=== PATIENT | male | born 1980 | race Two or more races ===

== ENCOUNTER 2018-08-14 10:30 | Inpatient (IN) | payer SELFPAY ==
[2018-08-14] MEDS ORDERED: NORMAL SALINE 1000 ML 1,000 ML IV ONE (10:42)
--- NOTE | 2018-08-14 10:43 | ER Document Report ---
ED Medical Screen (RME) - General Chief Complaint: Abdominal Pain Stated Complaint: ABNORMAL LABS Time Seen by Provider: 08/14/18 10:40 Mode of Arrival: Ambulatory Information source: Patient Notes: 38-year-old male presents to ED for complaint of abdominal pain and a white count over 40,000. Pain started on Thursday got worse on Thursday it was terrible and he was sweating every time the pain got bad states she has not had any fever throughout this episode. He does smoke 1/2 pack a day drinks weekly and does not do any drugs. He was sent by his primary care doctor to be evaluated and treated. I have greeted and performed a rapid initial assessment of this patient. A comprehensive ED assessment and evaluation of the patient, analysis of test results and completion of medical decision making process will be conducted by an additional ED providers. Dictation of this chart was performed using voice recognition software; therefore, there may be some unintended grammatical errors. TRAVEL OUTSIDE OF THE [place] IN LAST 30 DAYS: No - Related Data Allergies/Adverse Reactions: No Known Allergies Allergy (Verified 08/14/18 10:30) Physical Exam - Vital signs Vitals: Temp Pulse Resp BP Pulse Ox 98.6 F 110 H 16 116/97 H 98 08/14/18 10:33 08/14/18 10:33 08/14/18 10:33 08/14/18 10:33 08/14/18 10:33 Course - Vital Signs Vital signs: Temp Pulse Resp BP Pulse Ox 98.6 F 110 H 16 116/97 H 98 08/14/18 10:33 08/14/18 10:33 08/14/18 10:33 08/14/18 10:33 08/14/18 10:33
[2018-08-14] MEDS ORDERED: RINGERS SOLUTION,LACTATED 1,000 ML IV ONE (10:51)
[2018-08-14] MEDS ORDERED: FENTANYL CITRATE INJ/PF 100 MCG/2 ML AMPUL IV ONE ×2 (11:00→15:20)
[2018-08-14] MEDS ORDERED: ONDANSETRON HCL INJ/PF 4 MG/2 ML SDV IV ONE (11:00)
[2018-08-14 11:23] LABS: HEMOGLOBIN 14.7 g/dL (13.5-17.0); MEAN CORPUSCULAR HGB CONC 33.3 g/dL (32.0-36.0); MEAN CORPUSCULAR VOLUME 96 fl (80-97); PLATELET COUNT 177 10^3/uL (150-450); RED BLOOD COUNT 4.58 10^6/uL (4.35-5.55); RED CELL DISTRIBUTION WIDTH 13.9 % (11.5-14.0); WHITE BLOOD COUNT 26.6 10^3/uL (4.0-10.5)
[2018-08-14 11:33] LABS: ALANINE AMINOTRANSFERASE 28 U/L (21-72); ALBUMIN 3.7 g/dL (3.5-5.0); ALKALINE PHOSPHATASE 83 U/L (38-126); ANION GAP 11 (5-19); ASPARTATE AMINO TRANSFERASE 16 U/L (17-59); BILIRUBIN,DIRECT 0.6 mg/dL (0.0-0.4); BILIRUBIN,TOTAL 1.2 mg/dL (0.2-1.3); BLOOD UREA NITROGEN 12 mg/dL (7-20); CALCIUM 9.2 mg/dL (8.4-10.2); CARBON DIOXIDE 26 mmol/L (22-30); CHLORIDE 103 mmol/L (98-107); GLUCOSE 107 mg/dL (75-110); POTASSIUM 3.7 mmol/L (3.6-5.0); TOTAL PROTEIN 6.4 g/dL (6.3-8.2)
[2018-08-14 11:55] LABS: ABSOLUTE LYMPHOCYTES# (MANUAL) 2.1 10^3/uL (0.5-4.7); ABSOLUTE MONOCYTES # (MANUAL) 2.1 10^3/uL (0.1-1.4); ABSOLUTE NEUTROPHILS# (MANUAL) 22.3 10^3/uL (1.7-8.2); BASOPHILS % (MANUAL) 0 % (0-2); EOSINOPHILS % (MANUAL) 0 % (0-6); LYMPHOCYTES % (MANUAL) 8 % (13-45); MONOCYTES % (MANUAL) 8 % (3-13); SEGMENTED NEUTROPHILS % (MAN) 84 % (42-78); TOTAL CELLS COUNTED 100
[2018-08-14 11:56] LABS: PLATELET COMMENT ADEQUATE; RBC MORPHOLOGY COMMENT NORMO-CYTIC/CHROMIC
[2018-08-14] MEDS ORDERED: PIPERACILLIN/TAZOBACTAM 4.5 GM VIAL IV ONE (12:16)
--- NOTE | 2018-08-14 12:43 | RADIOLOGY REPORT (SQ) ---
EXAM DESCRIPTION: CT ABD/PELVIS WITH IV ONLY COMPLETED DATE/TIME: 08/14/2018 11:32 am REASON FOR STUDY: RLQ pain NOW DIFFUSE ABDOMINAL PAIN. WBC COUNT GREATER THAN 40,000. COMPARISON: None. TECHNIQUE: CT scan of the abdomen and pelvis performed using helical scanning technique with dynamic intravenous contrast injection. No oral contrast. Images reviewed with lung, soft tissue, and bone windows. Reconstructed coronal and sagittal MPR images reviewed. Delayed images for evaluation of the urinary system also acquired. All images stored on PACS. All CT scanners at this facility use dose modulation, iterative reconstruction, and/or weight based d osing when appropriate to reduce radiation dose to as low as reasonably achievable (ALARA). [facility]: Dose Right [facility]: CareDose [facility]: Dose Right [facility]: Teradose 4D [facility]: Open Source Food CONTRAST TYPE AND DOSE: contrast/concentration: Isovue mg/ml; Total Contrast Delivered: 100.0 ml; T otal Saline Delivered: 72.0 ml Omnipaque 300. 100 mL. RENAL FUNCTION: NA. RADIATION DOSE: CT Rad equipment meets quality standard of care and radiation dose reduction techniq ues were employed. CTDIvol: 19.4 - 21.0 mGy. DLP: 2308 mGy-cm.. LIMITATIONS: None. FINDINGS: LOWER CHEST: Atelectasis in lung bases. LIVER: No abnormality seen. SPLEEN: Status post splenectomy with changes of splenosis. PANCREAS: No abnormality seen. GALLBLADDER: No abnormality seen. ADRENAL GLANDS: No significant masses or asymmetry. RIGHT KIDNEY AND URETER: No abnormality seen. LEFT KIDNEY AND URETER: No abnormality seen. AORTA AND VESSELS: Normal PE No dissection. Renal arteries, SMA, celiac without stenosis. RETROPERITONEUM: Inflammatory change noted in the retroperitoneal region. BOWEL AND PERITONEAL CAVITY: There is prominent mucosal thickening and inflammatory change of the rec tosigmoid colon consistent with acute diverticulitis with evidence of a small pelvic abscess with flu id collection/ air extending to the left hemipelvis and fluid collection right hemipelvis. The centr al portion of the abscess is noted measuring 2 cm in height x 2.8 cm in transverse diameterx1 cm in A P diameter.(image number 48/91 series 601 coronal scans and image 77/102 series 3 ). There is signif icant inflammatory change of the mesentery noted prominent loop of small bowel and anterior pelvis co uld represent changes related to ileus. APPENDIX: Normal(image number [id number] coronal images series 601). PELVIS: Urinary bladder: No abnormality. Prostate and seminal vesicles: No abnormality. ABDOMINAL WALL: No masses. No hernias. BONES: Dorsal spondylosis. IMPRESSION: Findings consistent with acute diverticulitis of the rectosigmoid colon with small pelvi c abscess. Follow-up recommended. Normal appendix. Follow-up at later interval recommended. COMMENT: The report was called to ROBB Nascimento taking care of the patient in the emergency room at 1218 hours TECHNICAL DOCUMENTATION: JOB ID: [id number] Quality ID # [id number]: Final reports with documentation of one or more dose reduction techniques (e.g., Au tomated exposure control, adjustment of the mA and/or kV according to patient size, use of iterative reconstruction technique) 2010 [employer]- All Rights Reserved Reading location - IP/workstation name: [email or web address]
[2018-08-14 13:01] LABS: APPEARANCE,URINE CLEAR; BILIRUBIN,URINE NEGATIVE (NEGATIVE); COLOR,URINE YELLOW; GLUCOSE, URINE NEGATIVE (NEGATIVE); KETONES,URINE 20 mg/dL (NEGATIVE); LEUKOCYTE ESTERASE,URINE NEGATIVE (NEGATIVE); NITRITE,URINE NEGATIVE (NEGATIVE); PROTEIN,URINE NEGATIVE (NEGATIVE); URINE SPECIFIC GRAVITY 1.041
[2018-08-14] MEDS ORDERED: HYDROMORPHONE HCL INJ/PF 2 MG/ML AMPULE IV ONE (13:40)
--- NOTE | 2018-08-14 14:15 | ER Document Report ---
ED General - General Chief Complaint: Abdominal Pain Stated Complaint: ABNORMAL LABS Time Seen by Provider: 08/14/18 10:40 Mode of Arrival: Ambulatory Notes: Patient is an 38-year-old male presents to the emergency department for generalized lower abdominal pain since Thursday. Patient's denying any nausea, vomiting, diarrhea. States he has not had a fever. States he went to a walk-in urgent care yesterday and had routine blood drawn. States this morning they called him and told him his white blood cell count was greater than 40,000 and he should present to the emergency room. Patient states he continues with generalized abdominal pain which is why he presents to the emergency room. 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 Past medical history: None medications: None Allergies: None TRAVEL OUTSIDE OF THE [place] IN LAST 30 DAYS: No - Related Data Allergies/Adverse Reactions: No Known Allergies Allergy (Verified 08/14/18 10:30) Past Medical History - General Information source: Patient - Social History Smoking Status: Current Every Day Smoker Frequency of alcohol use: Social Drug Abuse: Marijuana Family History: Reviewed & Not Pertinent Patient has suicidal ideation: No Patient has homicidal ideation: No Renal/ Medical History: Denies: Hx Peritoneal Dialysis Past Surgical History: Reports: Hx Abdominal Surgery - splenectomy Review of Systems - Review of Systems Constitutional: No symptoms reported EENT: No symptoms reported Cardiovascular: No symptoms reported Respiratory: No symptoms reported Gastrointestinal: See HPI Genitourinary: denies: Burning, Dysuria Male Genitourinary: No symptoms reported Musculoskeletal: No symptoms reported Skin: No symptoms reported Hematologic/Lymphatic: No symptoms reported Neurological/Psychological: No symptoms reported Physical Exam - Vital signs Vitals: Temp Pulse Resp BP Pulse Ox 98.6 F 110 H 16 116/97 H 98 08/14/18 10:33 08/14/18 10:33 08/14/18 10:33 08/14/18 10:33 08/14/18 10:33 - Notes Notes: GENERAL: Alert, interacts well. No acute distress. HEAD: Normocephalic, atraumatic. EYES: Pupils equal, round, and reactive to light. Extraocular movements intact. ENT: Oral mucosa moist, tongue midline. NECK: Full range of motion. Supple. Trachea midline. LUNGS: Clear to auscultation bilaterally, no wheezes, rales, or rhonchi. No respiratory distress. HEART: Regular rate and rhythm. No murmur ABDOMEN: Soft, Non-distended. Bowel sounds present in all 4 quadrants. Generalized tenderness bilateral lower quadrants, no right upper quadrant abdominal pain no left upper abdominal pain EXTREMITIES: Moves all 4 extremities spontaneously. No edema, normal radial and dorsalis pedis pulses bilaterally. No cyanosis. BACK: no cervical, thoracic, lumbar midline tenderness. No saddle anesthesia, normal distal neurovascular exam. NEUROLOGICAL: Alert and oriented x3. Normal speech. cranial nerves II through XII grossly intact PSYCH: Normal affect, normal mood. SKIN: Warm, dry, normal turgor. No rashes or lesions noted. Genitalia: Harrison Ames RN, circumcised penis no active discharge at the meatus, bilateral testicles nonerythematous, non-tender, nonswollen. Course - Re-evaluation Re-evalutation: Laboratory 08/14/18 08/14/18 08/14/18 10:55 10:55 12:00 WBC 26.6 H RBC 4.58 Hgb 14.7 Hct 44.0 MCV 96 MCH 32.0 MCHC 33.3 RDW 13.9 Plt Count 177 Total Counted 100 Seg Neutrophils % Not Reportable Seg Neuts % (Manual) 84 H Lymphocytes % Not Reportable Lymphocytes % (Manual) 8 L Monocytes % Not Reportable Monocytes % (Manual) 8 Eosinophils % Not Reportable Eosinophils % (Manual) 0 Basophils % Not Reportable Basophils % (Manual) 0 Absolute Neutrophils Not Reportable Abs Neuts (Manual) 22.3 H Absolute Lymphocytes Not Reportable Abs Lymphs (Manual) 2.1 Absolute Monocytes Not Reportable Abs Monocytes (Manual) 2.1 H Absolute Eosinophils Not Reportable Absolute Eos (Manual) 0.0 Absolute Basophils Not Reportable Abs Basophils (Manual) 0.0 Platelet Comment ADEQUATE RBC Morph Comment NORMO-CYTIC/CHROMIC Sodium 140.0 Potassium 3.7 Chloride 103 Carbon Dioxide 26 Anion Gap 11 BUN 12 Creatinine 0.86 Est GFR ( Amer) > 60 Est GFR (Non-Af Amer) > 60 Glucose 107 Lactic Acid 1.0 Calcium 9.2 Total Bilirubin 1.2 Direct Bilirubin 0.6 H Neonat Total Bilirubin Not Reportable Neonat Direct Bilirubin Not Reportable Neonat Indirect Bili Not Reportable AST 16 L ALT 28 Alkaline Phosphatase 83 Total Protein 6.4 Albumin 3.7 Urine Color Urine Appearance Urine pH Ur Specific [place] Urine Protein Urine Glucose (UA) Urine Ketones Urine Blood Urine Nitrite Urine Bilirubin Urine Urobilinogen Ur Leukocyte Esterase Urine WBC (Auto) Urine RBC (Auto) Urine Mucus (Auto) Urine Ascorbic Acid 08/14/18 12:38 WBC RBC Hgb Hct MCV MCH MCHC RDW Plt Count Total Counted Seg Neutrophils % Seg Neuts % (Manual) Lymphocytes % Lymphocytes % (Manual) Monocytes % Monocytes % (Manual) Eosinophils % Eosinophils % (Manual) Basophils % Basophils % (Manual) Absolute Neutrophils Abs Neuts (Manual) Absolute Lymphocytes Abs Lymphs (Manual) Absolute Monocytes Abs Monocytes (Manual) Absolute Eosinophils Absolute Eos (Manual) Absolute Basophils Abs Basophils (Manual) Platelet Comment RBC Morph Comment Sodium Potassium Chloride Carbon Dioxide Anion Gap BUN Creatinine Est GFR ( Amer) Est GFR (Non-Af Amer) Glucose Lactic Acid Calcium Total Bilirubin Direct Bilirubin Neonat Total Bilirubin Neonat Direct Bilirubin Neonat Indirect Bili AST ALT Alkaline Phosphatase Total Protein Albumin Urine Color YELLOW Urine Appearance CLEAR Urine pH 6.0 Ur Specific [place] 1.041 Urine Protein NEGATIVE Urine Glucose (UA) NEGATIVE Urine Ketones 20 H Urine Blood NEGATIVE Urine Nitrite NEGATIVE Urine Bilirubin NEGATIVE Urine Urobilinogen 4.0 H Ur Leukocyte Esterase NEGATIVE Urine WBC (Auto) 1 Urine RBC (Auto) 0 Urine Mucus (Auto) RARE Urine Ascorbic Acid NEGATIVE Abdomen/Pelvis CT 08/14/18 10:52 IMPRESSION: Findings consistent with acute diverticulitis of the rectosigmoid colon with small pelvic abscess. Follow-up recommended. Normal appendix. Follow-up at later interval recommended. 08/14/18 14:06 Discussed this case with surgeon Dr. Damon, he states he will come to the emergency department to evaluate the patient. 08/14/18 15:04 Dr. Damon in the emergency department to evaluate the patient. Patient is standing and refusing pain management at this time. He will not lay flat for Dr. Damon to do an examination. Dr. Damon is recommending calling hospitalist for admission for IV antibiotics and continued care. I have paged hospitalist at this time, currently waiting for a return phone call. Hospitalist miguelina Soto NP stated this may be a surgical case, Dr. Diana needs to evaluate the pt. and if not taking the pt. to surgery than hospitalist will accept. 08/14/18 15:40 Dr. Damon is in the emergency department to evaluate the patient. He states he will not take the patient to surgery and he feels as though this is a medical admission. Paged to Dr. Johns who is coming to the emergency department for patient report. 08/14/18 15:[address] Johns is in the emergency department with this time. He will accept the patient for admission for continued care. Patient continues to refuse administration of Dilaudid in the emergency department. Patient is very concerned of how expensive this visit is going to cost him. He wishes to decline pain management at this time. - Vital Signs Vital signs: Temp Pulse Resp BP Pulse Ox 99.4 F 110 H 17 133/70 H 97 08/14/18 17:24 08/14/18 17:24 08/14/18 17:24 08/14/18 17:24 08/14/18 17:24 - Laboratory Result Diagrams: 08/14/18 10:55 08/14/18 10:55 Laboratory results interpreted by me: 08/14/18 08/14/18 08/14/18 10:55 10:55 12:38 WBC 26.6 H Seg Neuts % (Manual) 84 H Lymphocytes % (Manual) 8 L Abs Neuts (Manual) 22.3 H Abs Monocytes (Manual) 2.1 H Direct Bilirubin 0.6 H AST 16 L Urine Ketones 20 H Urine Urobilinogen 4.0 H Discharge - Discharge Clinical Impression: Diverticulitis, Pelvic abscess Condition: Stable Disposition: ADMITTED INPATIENT Admitting Provider: Oswaldo (Hospitalist) Unit Admitted: Medical Floor
--- NOTE | 2018-08-14 16:02 | PDOC CONSULTATION ---
Consultation Consult Date: 08/14/18 Provider Consulted: ARELY ASCENCIO Consult reason:: Diverticulitis with abscess History of Present Illness Admission Date/PCP: 08/15/18 History of Present Illness: ESTER NICOLE is a 38 year old male who started c/o abdominal pains 4 days ago. 2 days ago got worse and went to an urgent care and blood work done.Called back and told to go to ED because WBC is elevated. Came to ED today still with lower abdominal pains, no nausea/vomiting. Had BM this am. WBC 26K and CT abd/pelvis showed sigmoid diverticulitis with a small abscess. Denies fever/chills. Past Surgical History Past Surgical History: Reports: Other - laparoscopic splenectomy age 21 due to ITP. Done in [facility] Social History Smoking Status: Current Every Day Smoker Family History Parental Family History Reviewed: Yes - mother DM Children Family History Reviewed: No Sibling(s) Family History Reviewed.: No Medication/Allergy Allergies/Adverse Reactions: No Known Allergies Allergy (Verified 08/14/18 10:30) Review of Systems Constitutional: PRESENT: as per HPI Eyes: PRESENT: other - no visual/hearing changes Cardiovascular: PRESENT: other - no chest pains/cough Physical Exam Vital Signs: Temp Pulse Resp BP Pulse Ox 99.8 F 110 H 31 H 139/75 H 99 08/14/18 14:36 08/14/18 10:33 08/14/18 12:02 08/14/18 12:02 08/14/18 12:02 Intake & Output 08/13/18 08/14/18 08/15/18 06:59 06:59 06:59 Intake Total 1999 Balance 1999 Weight 112.4 kg General appearance: PRESENT: mild distress Head exam: PRESENT: atraumatic Eye exam: PRESENT: conjunctiva pink Mouth exam: PRESENT: dry mucosa Neck exam: PRESENT: full ROM Respiratory exam: PRESENT: clear to auscultation [place] Cardiovascular exam: PRESENT: tachycardia Pulses: PRESENT: normal radial pulses Vascular exam: PRESENT: normal capillary refill GI/Abdominal exam: PRESENT: soft, tenderness - Lower abdomen more LLQ and suprapubic Rectal exam: PRESENT: deferred Psychiatric exam: PRESENT: appropriate affect - Was initially upset about being admitted and threatened AMA because no insurance Calmed down after i had a long talk with him Skin exam: PRESENT: normal color, warm Results Laboratory Results: 08/14/18 10:55 08/14/18 10:55 08/14/18 08/14/18 08/14/18 10:55 10:55 12:00 WBC 26.6 H RBC 4.58 Hgb 14.7 Hct 44.0 MCV 96 MCH 32.0 MCHC 33.3 RDW 13.9 Plt Count 177 Seg Neutrophils % Not Reportable Lymphocytes % Not Reportable Monocytes % Not Reportable Eosinophils % Not Reportable Basophils % Not Reportable Absolute Neutrophils Not Reportable Absolute Lymphocytes Not Reportable Absolute Monocytes Not Reportable Absolute Eosinophils Not Reportable Absolute Basophils Not Reportable Sodium 140.0 Potassium 3.7 Chloride 103 Carbon Dioxide 26 Anion Gap 11 BUN 12 Creatinine 0.86 Est GFR ( Amer) > 60 Est GFR (Non-Af Amer) > 60 Glucose 107 Lactic Acid 1.0 Calcium 9.2 Total Bilirubin 1.2 AST 16 L ALT 28 Alkaline Phosphatase 83 Total Protein 6.4 Albumin 3.7 Urine Color Urine Appearance Urine pH Ur Specific [place] Urine Protein Urine Glucose (UA) Urine Ketones Urine Blood Urine Nitrite Ur Leukocyte Esterase Urine WBC (Auto) Urine RBC (Auto) 08/14/18 12:38 WBC RBC Hgb Hct MCV MCH MCHC RDW Plt Count Seg Neutrophils % Lymphocytes % Monocytes % Eosinophils % Basophils % Absolute Neutrophils Absolute Lymphocytes Absolute Monocytes Absolute Eosinophils Absolute Basophils Sodium Potassium Chloride Carbon Dioxide Anion Gap BUN Creatinine Est GFR ( Amer) Est GFR (Non-Af Amer) Glucose Lactic Acid Calcium Total Bilirubin AST ALT Alkaline Phosphatase Total Protein Albumin Urine Color YELLOW Urine Appearance CLEAR Urine pH 6.0 Ur Specific [place] 1.041 Urine Protein NEGATIVE Urine Glucose (UA) NEGATIVE Urine Ketones 20 H Urine Blood NEGATIVE Urine Nitrite NEGATIVE Ur Leukocyte Esterase NEGATIVE Urine WBC (Auto) 1 Urine RBC (Auto) 0 Impressions: Abdomen/Pelvis CT 08/14/18 10:52 IMPRESSION: Findings consistent with acute diverticulitis of the rectosigmoid colon with small pelvic abscess. Follow-up recommended. Normal appendix. Follow-up at later interval recommended. Assessment & Plan - Diagnosis (1) acute sigmoid diverticulitis with absces Is this a current diagnosis for this admission?: Yes - Time Time Spent: 30 to 50 Minutes - Inpatient Certification Medical Necessity: Need For IV Fluids, Need for Pain Control, Need for IV Antibiotics, Risk of Complication if Not Cared For in Hospital - Plan Summary Plan Summary: His abdomen is soft with main tenderness suprapubic area. Afebrile but tachycardic despite 2 l of IVF. Plan: 1) Needs more hydration. He is about 115 kgs and needs 30ccs/kg about 4l. Will need another 2l. 2) Continue IV antibiotics 3) Continue bowel rest ie NPO at least until i re-evaluate him in am 4) pain mx
[2018-08-14] MEDS ORDERED: ONDANSETRON HCL INJ/PF 4 MG/2 ML SDV IV PRN (16:16)
--- NOTE | 2018-08-14 16:16 | PDOC H&P ---
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 Patient has been in apparently good state of health up until 5 days when he started to have abdominal pain localized to his left lower quadrant which is nonradiating and crampy in nature. The last 2 days the severity of his abdominal pain has increased exponentially. For this problem patient visited urgent care where they did blood work and send him home with abdominal pain the urgent care provider called patient and told he has white cell count of 40,000 and directed to come to the ER. In ER patient was found to be tachycardic and diaphoretic. He has been given Dilaudid for the abdominal pain his blood work shows leukocytosis of 26,000, his lactic acid is [address] of the abdomen and pelvis reported as findings consistent with acute diverticulitis of the rectosigmoid colon with a small pelvic abscess. Patient is given a dose of Z osyn. Patient denies any nausea, vomiting, diarrhea or any urinary complaints. He does not have any headache dizziness or blurry vision. ER attending consulted Dr. Damon states patient does not need any surgical intervention and recommended conservative medical management. Past Medical History Hematology: Reports: Other - History of idiopathic thrombocytopenia status post splenectomy Past Surgical History Past Surgical History: Reports: Other - laparoscopic splenectomy age 21 due to ITP. Done in [facility] Social History Smoking Status: Current Every Day Smoker Frequency of Alcohol Use: None Hx Recreational Drug Use: No - Advance Directive Resuscitation Status: Full Code Family History Family History: DM, Hyperlipidemia, Hypertension, Malignancy Parental Family History Reviewed: Yes Children Family History Reviewed: Yes Sibling(s) Family History Reviewed.: Yes Medication/Allergy Home Medications: No Home Medications 08/14/18 Allergies/Adverse Reactions: No Known Allergies Allergy (Verified 08/14/18 10:30) Review of Systems Constitutional: ABSENT: chills, fever(s), headache(s), weight gain, weight loss Eyes: ABSENT: visual disturbances Ears: ABSENT: hearing changes Cardiovascular: PRESENT: palpitations Respiratory: ABSENT: cough, hemoptysis Gastrointestinal: PRESENT: abdominal pain Genitourinary: ABSENT: dysuria, hematuria Musculoskeletal: ABSENT: joint swelling Integumentary: ABSENT: rash, wounds Neurological: ABSENT: abnormal gait, abnormal speech, confusion, dizziness, focal weakness, syncope Psychiatric: ABSENT: anxiety, depression, homidical ideation, suicidal ideation Endocrine: ABSENT: cold intolerance, heat intolerance, polydipsia, polyuria Hematologic/Lymphatic: ABSENT: easy bleeding, easy bruising Physical Exam Vital Signs: Temp Pulse Resp BP Pulse Ox 99.8 F 110 H 31 H 139/75 H 99 08/14/18 14:36 08/14/18 10:33 08/14/18 12:02 08/14/18 12:02 08/14/18 12:02 Intake & Output 08/13/18 08/14/18 08/15/18 06:59 06:59 06:59 Intake Total 1999 Balance 1999 Weight 112.4 kg GI/Abdominal exam: PRESENT: tenderness - Left lower quadrant Results Laboratory Results: 08/14/18 10:55 08/14/18 10:55 08/14/18 08/14/18 08/14/18 10:55 10:55 12:00 WBC 26.6 H RBC 4.58 Hgb 14.7 Hct 44.0 MCV 96 MCH 32.0 MCHC 33.3 RDW 13.9 Plt Count 177 Seg Neutrophils % Not Reportable Lymphocytes % Not Reportable Monocytes % Not Reportable Eosinophils % Not Reportable Basophils % Not Reportable Absolute Neutrophils Not Reportable Absolute Lymphocytes Not Reportable Absolute Monocytes Not Reportable Absolute Eosinophils Not Reportable Absolute Basophils Not Reportable Sodium 140.0 Potassium 3.7 Chloride 103 Carbon Dioxide 26 Anion Gap 11 BUN 12 Creatinine 0.86 Est GFR ( Amer) > 60 Est GFR (Non-Af Amer) > 60 Glucose 107 Lactic Acid 1.0 Calcium 9.2 Total Bilirubin 1.2 AST 16 L ALT 28 Alkaline Phosphatase 83 Total Protein 6.4 Albumin 3.7 Urine Color Urine Appearance Urine pH Ur Specific [place] Urine Protein Urine Glucose (UA) Urine Ketones Urine Blood Urine Nitrite Ur Leukocyte Esterase Urine WBC (Auto) Urine RBC (Auto) 08/14/18 12:38 WBC RBC Hgb Hct MCV MCH MCHC RDW Plt Count Seg Neutrophils % Lymphocytes % Monocytes % Eosinophils % Basophils % Absolute Neutrophils Absolute Lymphocytes Absolute Monocytes Absolute Eosinophils Absolute Basophils Sodium Potassium Chloride Carbon Dioxide Anion Gap BUN Creatinine Est GFR ( Amer) Est GFR (Non-Af Amer) Glucose Lactic Acid Calcium Total Bilirubin AST ALT Alkaline Phosphatase Total Protein Albumin Urine Color YELLOW Urine Appearance CLEAR Urine pH 6.0 Ur Specific [place] 1.041 Urine Protein NEGATIVE Urine Glucose (UA) NEGATIVE Urine Ketones 20 H Urine Blood NEGATIVE Urine Nitrite NEGATIVE Ur Leukocyte Esterase NEGATIVE Urine WBC (Auto) 1 Urine RBC (Auto) 0 Impressions: Abdomen/Pelvis CT 08/14/18 10:52 IMPRESSION: Findings consistent with acute diverticulitis of the rectosigmoid colon with small pelvic abscess. Follow-up recommended. Normal appendix. Follow-up at later interval recommended. Assessment and Plan - Diagnosis (1) A rectosigmoid diverticulitis/abscess Is this a current diagnosis for this admission?: Yes Plan: Patient has been started on Zosyn. We will keep him on bowel rest. Pain control and adequate hydration. Follow-up CT scan of the abdomen and pelvis in the coming [id number] hours. (2) Systemic inflammatory response syndrome Is this a current diagnosis for this admission?: Yes Plan: Patient has tachycardia leukocytosis. (3) Leukocytosis Is this a current diagnosis for this admission?: Yes Plan: We will closely follow his white cell count. (4) History of idiopathic thrombocytopenic purpura Is this a current diagnosis for this admission?: Yes Plan: Status post splenectomy. Now in remission. - Inpatient Certification Medical Necessity: Need Close Monitoring Due to Risk of Patient Decompensation, Need For IV Fluids, Need for IV Antibiotics
[2018-08-14] MEDS ORDERED: NICOTINE 14 MG/24 HR PATCH.TD24 TD ONE (16:22)
[2018-08-14] MEDS: POTASSI CL 20 MEQ/NS 1L 1,000 ML IV PRN (16:51)
[2018-08-14] MEDS: HYDROMORPHONE HCL INJ/PF 2 MG/ML AMPULE IV PRN ×2 (18:00→22:03)
[2018-08-14] MEDS: PIPERACILLIN SODIUM/TAZOBACTAM 4.5 GM in NORMAL SALINE 100 ML IV SCH ×2 (18:05→23:46)
[2018-08-14] MEDS: ENOXAPARIN SODIUM INJ 40 MG/0.4 ML DISP.SYRIN SUBCUT SCH (18:10)
[2018-08-15] MEDS: HYDROMORPHONE HCL INJ/PF 2 MG/ML AMPULE IV PRN ×4 (02:05→19:32)
[2018-08-15 05:08] LABS: HEMATOCRIT 40.3 % (37.9-51.0); HEMOGLOBIN 13.3 g/dL (13.5-17.0); MEAN CORPUSCULAR HEMOGLOBIN 31.7 pg (27.0-33.4); MEAN CORPUSCULAR VOLUME 96 fl (80-97); PLATELET COUNT 206 10^3/uL (150-450); RED BLOOD COUNT 4.19 10^6/uL (4.35-5.55); RED CELL DISTRIBUTION WIDTH 13.9 % (11.5-14.0); WHITE BLOOD COUNT 22.5 10^3/uL (4.0-10.5)
[2018-08-15 05:26] LABS: ANION GAP 15 (5-19); BLOOD UREA NITROGEN 11 mg/dL (7-20); CALCIUM 8.5 mg/dL (8.4-10.2); CARBON DIOXIDE 22 mmol/L (22-30); CHLORIDE 104 mmol/L (98-107); POTASSIUM 4.1 mmol/L (3.6-5.0); SODIUM 140.5 mmol/L (137-145)
[2018-08-15 05:30] LABS: GLUCOSE 68 mg/dL (75-110)
[2018-08-15 05:47] LABS: ABSOLUTE LYMPHOCYTES# (MANUAL) 2.5 10^3/uL (0.5-4.7); ABSOLUTE MONOCYTES # (MANUAL) 0.7 10^3/uL (0.1-1.4); ABSOLUTE NEUTROPHILS# (MANUAL) 19.1 10^3/uL (1.7-8.2); BAND NEUTROPHILS % (MANUAL) 2 % (3-5); BASOPHILS % (MANUAL) 1 % (0-2); EOSINOPHILS % (MANUAL) 0 % (0-6); LYMPHOCYTES % (MANUAL) 11 % (13-45); MONOCYTES % (MANUAL) 3 % (3-13); PLATELET CLUMPS PRESENT; SEGMENTED NEUTROPHILS % (MAN) 83 % (42-78); TOTAL CELLS COUNTED 100
[2018-08-15 05:49] LABS: RBC MORPHOLOGY COMMENT NORMO-CYTIC/CHROMIC
[2018-08-15] MEDS: PIPERACILLIN SODIUM/TAZOBACTAM 4.5 GM in NORMAL SALINE 100 ML IV SCH ×3 (06:20→17:28)
[2018-08-15] MEDS: POTASSI CL 20 MEQ/NS 1L 1,000 ML IV PRN (06:55)
[2018-08-15] MEDS ORDERED: DEXTROSE 40% GEL 15 GM TUBE X 2 PO PRN (07:00)
[2018-08-15] MEDS ORDERED: DEXTROSE 40% GEL 15 GM TUBE PO PRN (07:00)
[2018-08-15] MEDS ORDERED: GLUCAGON,HUMAN RECOMB 1 MG INJ IM PRN (07:00)
[2018-08-15] MEDS ORDERED: DEXTROSE 50%-WATER SYRINGE 25 GM/50 ML DOSE IV PRN (07:00)
[2018-08-15] MEDS ORDERED: DEXTROSE 50%-WATER SYRINGE 12.5 GM/25 ML DOSE IV PRN (07:00)
[2018-08-15] MEDS: ENOXAPARIN SODIUM INJ 40 MG/0.4 ML DISP.SYRIN SUBCUT SCH (09:14)
[2018-08-15] MEDS: NICOTINE 14 MG/24 HR PATCH.TD24 TD SCH (09:14)
--- NOTE | 2018-08-15 11:11 | PDOC PROGRESS REPORT ---
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 Patient has been in apparently good state of health up until 5 days when he started to have abdominal pain localized to his left lower quadrant which is nonradiating and crampy in nature. The last 2 days the severity of his ab dominal pain has increased exponentially. For this problem patient visited urgent care where they did blood work and send him home with abdominal pain the urgent care provider called patient and told he has white cell count of 40,000 and directed to come to the ER. In ER patient was found to be tachycardic and diaphoretic. He has been given Dilaudid for the abdominal pain his blood work shows leukocytosis of 26,000, his lactic acid is [address] of the abdomen and pelvis reported as findings consistent with acute diverticulitis of the rectosigmoid colon with a small pelvic abscess. Patient admitted with inpatient status for acute rectosigmoid diverticulitis with abscess. Has been getting Zosyn. Morning I seen patient resting in bed comfortably. He reports that the pain has been subsiding. I reviewed his lab and his blood work shows his white cell count is trending down yesterday it was 26.6 today 22.5. Reason For Visit: ACUTE RECTOSIGMOID DIVERTICULITIS WITH SMALL Physical Exam Vital Signs: Temp Pulse Resp BP Pulse Ox 98.4 F 114 H 16 133/72 H 94 08/15/18 00:00 08/15/18 00:00 08/15/18 00:00 08/15/18 00:00 08/15/18 00:00 Intake & Output 08/14/18 08/15/18 08/16/18 06:59 06:59 06:59 Intake Total 3780 Balance 3780 Weight 112.4 kg General appearance: PRESENT: no acute distress, well-developed, well-nourished Head exam: PRESENT: atraumatic, normocephalic Eye exam: PRESENT: conjunctiva pink, EOMI, PERRLA. ABSENT: scleral icterus Ear exam: PRESENT: normal external ear exam Mouth exam: PRESENT: moist, tongue midline Neck exam: ABSENT: carotid bruit, JVD, lymphadenopathy, thyromegaly Respiratory exam: PRESENT: clear to auscultation obinna. ABSENT: rales, rhonchi, wheezes Cardiovascular exam: PRESENT: RRR. ABSENT: diastolic murmur, rubs, systolic murmur Pulses: PRESENT: normal dorsalis pedis pul Vascular exam: PRESENT: normal capillary refill GI/Abdominal exam: PRESENT: tenderness - Left lower quadrant Rectal exam: PRESENT: deferred Extremities exam: PRESENT: full ROM. ABSENT: calf tenderness, clubbing, pedal edema Neurological exam: PRESENT: alert, awake, oriented to person, oriented to place, oriented to time, oriented to situation, CN II-XII grossly intact. ABSENT: mot or sensory deficit Psychiatric exam: PRESENT: appropriate affect, normal mood. ABSENT: homicidal ideation, suicidal ideation Skin exam: PRESENT: dry, intact, warm. ABSENT: cyanosis, rash Results Laboratory Results: 08/15/18 04:06 08/15/18 04:06 08/14/18 08/14/18 08/14/18 10:55 10:55 12:00 WBC 26.6 H RBC 4.58 Hgb 14.7 Hct 44.0 MCV 96 MCH 32.0 MCHC 33.3 RDW 13.9 Plt Count 177 Seg Neutrophils % Not Reportable Lymphocytes % Not Reportable Monocytes % Not Reportable Eosinophils % Not Reportable Basophils % Not Reportable Absolute Neutrophils Not Reportable Absolute Lymphocytes Not Reportable Absolute Monocytes Not Reportable Absolute Eosinophils Not Reportable Absolute Basophils Not Reportable Sodium 140.0 Potassium 3.7 Chloride 103 Carbon Dioxide 26 Anion Gap 11 BUN 12 Creatinine 0.86 Est GFR ( Amer) > 60 Est GFR (Non-Af Amer) > 60 Glucose 107 Lactic Acid 1.0 Calcium 9.2 Total Bilirubin 1.2 AST 16 L ALT 28 Alkaline Phosphatase 83 Total Protein 6.4 Albumin 3.7 Urine Color Urine Appearance Urine pH Ur Specific [place] Urine Protein Urine Glucose (UA) Urine Ketones Urine Blood Urine Nitrite Ur Leukocyte Esterase Urine WBC (Auto) Urine RBC (Auto) 08/14/18 08/15/18 08/15/18 12:38 04:06 04:06 WBC 22.5 H RBC 4.19 L Hgb 13.3 L Hct 40.3 MCV 96 MCH 31.7 MCHC 33.0 RDW 13.9 Plt Count 206 Seg Neutrophils % Not Reportable Lymphocytes % Not Reportable Monocytes % Not Reportable Eosinophils % Not Reportable Basophils % Not Reportable Absolute Neutrophils Not Reportable Absolute Lymphocytes Not Reportable Absolute Monocytes Not Reportable Absolute Eosinophils Not Reportable Absolute Basophils Not Reportable Sodium 140.5 Potassium 4.1 Chloride 104 Carbon Dioxide 22 Anion Gap 15 BUN 11 Creatinine 0.86 Est GFR ( Amer) > 60 Est GFR (Non-Af Amer) > 60 Glucose 68 L Lactic Acid Calcium 8.5 Total Bilirubin AST ALT Alkaline Phosphatase Total Protein Albumin Urine Color YELLOW Urine Appearance CLEAR Urine pH 6.0 Ur Specific [place] 1.041 Urine Protein NEGATIVE Urine Glucose (UA) NEGATIVE Urine Ketones 20 H Urine Blood NEGATIVE Urine Nitrite NEGATIVE Ur Leukocyte Esterase NEGATIVE Urine WBC (Auto) 1 Urine RBC (Auto) 0 Impressions: Abdomen/Pelvis CT 08/14/18 10:52 IMPRESSION: Findings consistent with acute diverticulitis of the rectosigmoid colon with small pelvic abscess. Follow-up recommended. Normal appendix. Follow-up at later interval recommended. Assessment and Plan - Diagnosis (1) A rectosigmoid diverticulitis/abscess Is this a current diagnosis for this admission?: Yes Plan: Continue current antibiotics. Continue current regimen. (2) Systemic inflammatory response syndrome Is this a current diagnosis for this admission?: Yes Plan: Patient has tachycardia leukocytosis. (3) Leukocytosis Is this a current diagnosis for this admission?: Yes Plan: Trending down. (4) History of idiopathic thrombocytopenic purpura Is this a current diagnosis for this admission?: Yes Plan: Status post splenectomy. Now in remission.
[2018-08-15] MEDS ORDERED: CAFFEINE CITRATED INJ/PF 60 MG/3 ML SDV IV ONE (11:30)
[2018-08-15] MEDS ORDERED: DEXTROSE 5%-WATER 1000 ML 1,000 ML with POTASSIUM CHLORIDE 20 MEQ IV PRN ×2 (12:00)
[2018-08-15] MEDS: POTASSI CL 20 MEQ/D5NS 1L 1000 ML IV PRN (12:26)
--- NOTE | 2018-08-15 17:45 | PDOC PROGRESS REPORT ---
Subjective Progress Note for:: 08/15/18 Subjective:: less pains. Has BM and flatus Reason For Visit: ACUTE RECTOSIGMOID DIVERTICULITIS WITH SMALL Physical Exam Vital Signs: Temp Pulse Resp BP Pulse Ox 99.9 F 113 H 18 138/70 H 93 08/15/18 08:00 08/15/18 08:00 08/15/18 08:00 08/15/18 08:00 08/15/18 08:00 Intake & Output 08/14/18 08/15/18 08/16/18 06:59 06:59 06:59 Intake Total 3780 100 Balance 3780 100 Weight 112.4 kg Exam: abdomen is soft with just mild tenderness suprapubic area Results Laboratory Results: 08/15/18 04:06 08/15/18 04:06 08/15/18 08/15/18 04:06 04:06 WBC 22.5 H RBC 4.19 L Hgb 13.3 L Hct 40.3 MCV 96 MCH 31.7 MCHC 33.0 RDW 13.9 Plt Count 206 Seg Neutrophils % Not Reportable Lymphocytes % Not Reportable Monocytes % Not Reportable Eosinophils % Not Reportable Basophils % Not Reportable Absolute Neutrophils Not Reportable Absolute Lymphocytes Not Reportable Absolute Monocytes Not Reportable Absolute Eosinophils Not Reportable Absolute Basophils Not Reportable Sodium 140.5 Potassium 4.1 Chloride 104 Carbon Dioxide 22 Anion Gap 15 BUN 11 Creatinine 0.86 Est GFR ( Amer) > 60 Est GFR (Non-Af Amer) > 60 Glucose 68 L Calcium 8.5 Impressions: Abdomen/Pelvis CT 08/14/18 10:52 IMPRESSION: Findings consistent with acute diverticulitis of the rectosigmoid colon with small pelvic abscess. Follow-up recommended. Normal appendix. Follow-up at later interval recommended. Assessment & Plan - Diagnosis (1) acute sigmoid diverticulitis with absces Is this a current diagnosis for this admission?: Yes - Time Time Spent with patient: 15-24 minutes - Inpatient Certification Medical Necessity: Need for IV Antibiotics - Plan Summary Plan Summary: Continue Antibiotic therapy OK to start clears Monitor WBC
[2018-08-16] MEDS: HYDROMORPHONE HCL INJ/PF 2 MG/ML AMPULE IV PRN ×2 (00:07→05:30)
[2018-08-16] MEDS: PIPERACILLIN SODIUM/TAZOBACTAM 4.5 GM in NORMAL SALINE 100 ML IV SCH ×5 (00:07→23:32)
[2018-08-16] MEDS: POTASSI CL 20 MEQ/D5NS 1L 1000 ML IV PRN ×2 (00:07→23:31)
[2018-08-16 05:46] LABS: ABSOLUTE BASOPHILS # (AUTO) 0.1 10^3/uL (0.0-0.2); ABSOLUTE EOSINOPHILS # (AUTO) 0.3 10^3/uL (0.0-0.6); ABSOLUTE MONOCYTES (AUTO) 1.3 10^3/uL (0.1-1.4); ABSOLUTE NEUT (AUTO) 13.1 10^3/uL (1.7-8.2); BASOPHILS % (AUTO) 0.4 % (0-2); EOSINOPHILS % (AUTO) 1.7 % (0-6); HEMATOCRIT 37.6 % (37.9-51.0); HEMOGLOBIN 12.5 g/dL (13.5-17.0); MEAN CORPUSCULAR HEMOGLOBIN 31.6 pg (27.0-33.4); MEAN CORPUSCULAR HGB CONC 33.2 g/dL (32.0-36.0); MEAN CORPUSCULAR VOLUME 95 fl (80-97); MONOCYTES % (AUTO) 7.9 % (3-13); PLATELET COUNT 221 10^3/uL (150-450); RED BLOOD COUNT 3.94 10^6/uL (4.35-5.55); RED CELL DISTRIBUTION WIDTH 13.6 % (11.5-14.0); TOTAL CELLS COUNTED % (AUTO) 100 %; WHITE BLOOD COUNT 16.8 10^3/uL (4.0-10.5)
[2018-08-16] MEDS ORDERED: KETOROLAC TROMETHAMINE 10 MG TABLET PO PRN (09:31)
--- NOTE | 2018-08-16 09:31 | PDOC PROGRESS REPORT ---
Subjective Progress Note for:: 08/16/18 Subjective:: Patient feels better, tolerating clear liquids, out of bed to chair, voiding, taking Dilaudid. Reason For Visit: ACUTE RECTOSIGMOID DIVERTICULITIS WITH SMALL Physical Exam Vital Signs: Temp Pulse Resp BP Pulse Ox 98.4 F 106 H 16 143/83 H 91 L 08/16/18 01:30 08/16/18 00:00 08/16/18 00:00 08/16/18 00:00 08/16/18 00:00 Intake & Output 08/15/18 08/16/18 08/17/18 06:59 06:59 06:59 Intake Total 3780 2300 100 Balance 3780 2300 100 Weight 112.4 kg General appearance: PRESENT: no acute distress GI/Abdominal exam: PRESENT: other - Soft, nontender no peritoneal signs no rigidity Results Laboratory Results: 08/16/18 04:56 08/15/18 04:06 08/16/18 04:56 WBC 16.8 H RBC 3.94 L Hgb 12.5 L Hct 37.6 L MCV 95 MCH 31.6 MCHC 33.2 RDW 13.6 Plt Count 221 Seg Neutrophils % 78.0 Lymphocytes % 12.0 L Monocytes % 7.9 Eosinophils % 1.7 Basophils % 0.4 Absolute Neutrophils 13.1 H Absolute Lymphocytes 2.0 Absolute Monocytes 1.3 Absolute Eosinophils 0.3 Absolute Basophils 0.1 08/14/18 12:38 Clean Catch Midstream Urine Culture - Final NO GROWTH 2 DAYS Impressions: Abdomen/Pelvis CT 08/14/18 10:52 IMPRESSION: Findings consistent with acute diverticulitis of the rectosigmoid colon with small pelvic abscess. Follow-up recommended. Normal appendix. Follow-up at later interval recommended. Assessment & Plan - Diagnosis (1) A rectosigmoid diverticulitis/abscess Is this a current diagnosis for this admission?: Yes Plan: Impression: Acute, complicated diverticulitis, first episode, Hinchey classification 1-2, responding satisfactorily to IV antibiotics. Recommendations: 1. Advance diet to full liquid 2. Add p.o. pain medication 3. Instructed nurses to provide the literature regarding diverticular management. Discussed the role of fiber in diet. 4. No indication for surgical intervention; suggest 24 more hours of IV antibiotics, then switch to. Patient can follow-up with available surgeon at [facility] in 1 to 2 weeks.
[2018-08-16] MEDS: ENOXAPARIN SODIUM INJ 40 MG/0.4 ML DISP.SYRIN SUBCUT SCH (09:53)
[2018-08-16] MEDS: NICOTINE 14 MG/24 HR PATCH.TD24 TD SCH (09:54)
[2018-08-16] MEDS: POTASSI CL 20 MEQ/NS 1L 1,000 ML IV PRN (09:58)
--- NOTE | 2018-08-16 09:59 | RADIOLOGY REPORT (SQ) ---
EXAM DESCRIPTION: CT ABD/PELVIS WITH IV ONLY COMPLETED DATE/TIME: 08/16/2018 9:41 am REASON FOR STUDY: Rectosigmoid diverticulitis with abscess COMPARISON: CT abdomen pelvis 08/14/2018 TECHNIQUE: CT scan of the abdomen and pelvis performed using helical scanning technique with dynamic intravenous contrast injection. No oral contrast. Images reviewed with lung, soft tissue, and bone windows. Reconstructed coronal and sagittal MPR images reviewed. Delayed images for evaluation of the urinary system also acquired. All images stored on PACS. All CT scanners at this facility use dose modulation, iterative reconstruction, and/or weight based d osing when appropriate to reduce radiation dose to as low as reasonably achievable (ALARA). [facility]: Dose Right [facility]: CareDose [facility]: Dose Right [facility]: Teradose 4D [facility]: SaveUp CONTRAST TYPE AND DOSE: contrast/concentration: Isovue 350.00 mg/ml; Total Contrast Delivered: 100.0 ml; Total Saline Delivered: 70.0 ml RENAL FUNCTION: Creatinine 0.8 RADIATION DOSE: CT Rad equipment meets quality standard of care and radiation dose reduction techniq ues were employed. CTDIvol: 19.6 - 21.0 mGy. DLP: 2443 mGy-cm.. LIMITATIONS: None. FINDINGS: Again, a 3.5 x 2 cm abscess is present in the left deep pelvis between the sigmoid colon a nd left external iliac vessels, best shown on axial image 75 and coronal image 42. This is similar c ompared to 08/14/2018. A 4 x 1.5 cm pelvic cul-de-sac abscess is present on axial image 83, also unchanged from 08/14/2018. There is diffuse mesenteric inflammation in the pelvis around the sigmoid colon and small bowel loops with inflammatory change extending up along the right and left pericolic gutter. This is similar co mpared to prior study. No CT evidence of bowel obstruction. No free intraperitoneal air. Sigmoid colon wall thickening and luminal narrowing from diverticulitis is present. LOWER CHEST: Multifocal bibasilar atelectasis LIVER: Normal size. No masses. No dilated ducts. SPLEEN: Post splenectomy with regenerative 2 cm splenic nodule axial image 18 PANCREAS: No masses. No significant calcifications. No adjacent inflammation or peripancreatic fluid collections. Pancreatic duct not dilated. GALLBLADDER: No identified stones by CT criteria. No inflammatory changes to suggest cholecystitis. ADRENAL GLANDS: No significant masses or asymmetry. RIGHT KIDNEY AND URETER: No solid masses. No significant calcifications. No hydronephrosis or hyd roureter. LEFT KIDNEY AND URETER: No solid masses. No significant calcifications. No hydronephrosis or hydr oureter. AORTA AND VESSELS: No aneurysm. No dissection. Renal arteries, SMA, celiac without stenosis. RETROPERITONEUM: No retroperitoneal adenopathy, hemorrhage or masses. BOWEL AND PERITONEAL CAVITY: As above APPENDIX: Normal. PELVIS: As above ABDOMINAL WALL: No masses. No hernias. BONES: No significant or acute findings. OTHER: No other significant finding. IMPRESSION: Persistent inflammation in the peritoneal cavity with small pelvic abscesses related to diverticulitis. TECHNICAL DOCUMENTATION: JOB ID: [id number] Quality ID # [id number]: Final reports with documentation of one or more dose reduction techniques (e.g., Au tomated exposure control, adjustment of the mA and/or kV according to patient size, use of iterative reconstruction technique) 2010 [employer]- All Rights Reserved Reading location - IP/workstation name: [email or web address]
--- NOTE | 2018-08-16 13:08 | PDOC PROGRESS REPORT ---
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 Patient has been in apparently good state of health up until 5 days when he started to have abdominal pain localized to his left lower quadrant which is nonradiating and crampy in nature. The last 2 days the severity of his abdominal pain has increased exponentially. For this problem patient visited urgent care where they did blood work and send him home with abdominal pain the urgent care provider called patient and told he has white cell count of 40,000 and directed to come to the ER. In ER patient was found to be tachycardic and diaphoretic. He has been given Dilaudid for the abdominal pain his blood work shows leukocytosis of 26,000, his lactic acid is [address] of the abdomen and pelvis reported as findings consistent with acute diverticulitis of the rectosig moid colon with a small pelvic abscess. Patient admitted with inpatient status for acute rectosigmoid diverticulitis with abscess. Has been getting Zosyn. This morning I seen patient resting in bed comfortably. He reports that the pain has been subsiding. I reviewed his lab and his blood work shows his white cell count is trending down yesterday it was 26.6 today 16. Patient also evaluated by Dr. Rosas who recommended to continue IV Zosyn for additional 24 hours then substitute with oral antibiotics. His repeat CT scan of the abdomen and pelvis with contrast reported as persistent inflammatory changes and small abscess. Reason For Visit: ACUTE RECTOSIGMOID DIVERTICULITIS WITH SMALL Physical Exam Vital Signs: Temp Pulse Resp BP Pulse Ox 98.4 F 106 H 16 143/83 H 91 L 08/16/18 01:30 08/16/18 00:00 08/16/18 00:00 08/16/18 00:00 08/16/18 00:00 Intake & Output 08/15/18 08/16/18 08/17/18 06:59 06:59 06:59 Intake Total 3780 2300 990 Balance 3780 2300 990 Weight 112.4 kg General appearance: PRESENT: no acute distress Eye exam: PRESENT: conjunctiva pink Mouth exam: PRESENT: moist Neck exam: ABSENT: carotid bruit, JVD, lymphadenopathy, thyromegaly Cardiovascular exam: PRESENT: RRR. ABSENT: diastolic murmur, rubs, systolic murmur GI/Abdominal exam: PRESENT: normal bowel sounds, soft. ABSENT: distended, guarding, mass, organolmegaly, rebound, tenderness Neurological exam: PRESENT: alert, awake, oriented to person, oriented to place, oriented to time, oriented to situation Results Laboratory Results: 08/16/18 04:56 08/15/18 04:06 08/16/18 04:56 WBC 16.8 H RBC 3.94 L Hgb 12.5 L Hct 37.6 L MCV 95 MCH 31.6 MCHC 33.2 RDW 13.6 Plt Count 221 Seg Neutrophils % 78.0 Lymphocytes % 12.0 L Monocytes % 7.9 Eosinophils % 1.7 Basophils % 0.4 Absolute Neutrophils 13.1 H Absolute Lymphocytes 2.0 Absolute Monocytes 1.3 Absolute Eosinophils 0.3 Absolute Basophils 0.1 08/14/18 12:38 Clean Catch Midstream Urine Culture - Final NO GROWTH 2 DAYS Impressions: Abdomen/Pelvis CT 08/16/18 00:00 IMPRESSION: Persistent inflammation in the peritoneal cavity with small pelvic abscesses related to diverticulitis. Assessment and Plan - Diagnosis (1) A rectosigmoid diverticulitis/abscess Is this a current diagnosis for this admission?: Yes Plan: Continue IV Zosyn for additional 24 hours then switch him to p.o. Cipro and Flagyl. (2) Systemic inflammatory response syndrome Is this a current diagnosis for this admission?: Yes Plan: Patient has tachycardia leukocytosis. (3) Leukocytosis Is this a current diagnosis for this admission?: Yes Plan: B resolving (4) History of idiopathic thrombocytopenic purpura Is this a current diagnosis for this admission?: Yes Plan: Status post splenectomy. Now in remission.
[2018-08-17] MEDS ORDERED: HALOPERIDOL LACTATE INJ 5 MG/1 ML VIAL ONE (02:43)
[2018-08-17] MEDS ORDERED: HALOPERIDOL LACTATE INJ 5 MG/1 ML VIAL IV PRN (02:52)
[2018-08-17] MEDS: HYDROMORPHONE HCL INJ/PF 2 MG/ML AMPULE IV PRN ×2 (03:17→09:43)
[2018-08-17] MEDS: PIPERACILLIN SODIUM/TAZOBACTAM 4.5 GM in NORMAL SALINE 100 ML IV SCH (05:51)
[2018-08-17 06:39] LABS: ABSOLUTE BASOPHILS # (AUTO) 0.2 10^3/uL (0.0-0.2); ABSOLUTE EOSINOPHILS # (AUTO) 0.5 10^3/uL (0.0-0.6); ABSOLUTE MONOCYTES (AUTO) 1.3 10^3/uL (0.1-1.4); ABSOLUTE NEUT (AUTO) 13.5 10^3/uL (1.7-8.2); BASOPHILS % (AUTO) 0.9 % (0-2); EOSINOPHILS % (AUTO) 2.6 % (0-6); HEMATOCRIT 39.3 % (37.9-51.0); HEMOGLOBIN 13.1 g/dL (13.5-17.0); LYMPHOCYTES % (AUTO) 11.6 % (13-45); MEAN CORPUSCULAR HEMOGLOBIN 31.5 pg (27.0-33.4); MEAN CORPUSCULAR HGB CONC 33.4 g/dL (32.0-36.0); MEAN CORPUSCULAR VOLUME 94 fl (80-97); MONOCYTES % (AUTO) 7.7 % (3-13); RED BLOOD COUNT 4.18 10^6/uL (4.35-5.55); RED CELL DISTRIBUTION WIDTH 13.7 % (11.5-14.0); SEGMENTED NEUTROPHILS % (AUTO) 77.2 % (42-78); TOTAL CELLS COUNTED % (AUTO) 100 %; WHITE BLOOD COUNT 17.5 10^3/uL (4.0-10.5)
[2018-08-17 07:00] LABS: PLATELET COUNT 214 10^3/uL (150-450)
[2018-08-17] MEDS: ENOXAPARIN SODIUM INJ 40 MG/0.4 ML DISP.SYRIN SUBCUT SCH (09:46)
[2018-08-17] MEDS: NICOTINE 14 MG/24 HR PATCH.TD24 TD SCH (09:46)
[2018-08-17 10:34] VITALS: BP 125/73
--- NOTE | 2018-08-17 10:41 | PDOC DISCHARGE SUMMARY ---
General - Admit/Disc Date/PCP Admission Date/Primary Care Provider: 08/14/18 16:07 Discharge Date: 08/17/18 - Discharge Diagnosis (1) A rectosigmoid diverticulitis/abscess Is this a current diagnosis for this admission?: Yes (2) Systemic inflammatory response syndrome Is this a current diagnosis for this admission?: Yes (3) Leukocytosis Is this a current diagnosis for this admission?: Yes (4) History of idiopathic thrombocytopenic purpura Is this a current diagnosis for this admission?: Yes - Additional Information Resuscitation Status: Full Code Discharge Diet: As Tolerated, Regular Discharge Activity: Activity As Tolerated Prescriptions: Ciprofloxacin HCl [Cipro 500 mg Tablet] 500 mg PO BID #20 tablet Metronidazole [Flagyl 500 mg Tablet] 500 mg PO TID #30 tablet Home Medications: Ciprofloxacin HCl [Cipro 500 mg Tablet] 500 mg PO BID #20 tablet 08/17/18 Metronidazole [Flagyl 500 mg Tablet] 500 mg PO TID #30 tablet 08/17/18 History of Present Illness History of Present Illness: ESTER NICOLE is a 38 year old male with no significant past medical history except for 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 Patient has been in apparently good state of health up until 5 days when he started to have abdominal pain localized to his left lower quadrant which is nonradiating and crampy in nature. The last 2 days the severity of his abdominal pain has increased exponentially. For this problem patient visited urgent care where they did blood work and send him home with abdominal pain the urgent care provider called patient and told he has white cell count of 40,000 and directed to come to the ER. In ER patient was found to be tachycardic and diaphoretic. He has been given Dilaudid for the abdominal pain his blood work shows leukocytosis of 26,000, his lactic acid is [address] of the abdomen and pelvis reported as findings consistent with acute diverticulitis of the rectosigmoid colon with a small pelvic abscess. Patient is given a dose of Zosyn. Patient denies any nausea, vomiting, diarrhea or any urinary complaints. He does not have any headache dizziness or blurry vision. ER attending consulted Dr. Damon states patient does not need any surgical intervention and recommended conservative medical management. 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 Patient has been in apparently good state of health up until 5 days when he started to have abdominal pain localized to his left lower quadrant which is nonradiating and crampy in nature. The last 2 days the severity of his abdominal pain has increased exponentially. For this problem patient visited urgent care where they did blood work and send him home with abdominal pain the urgent care provider called patient and told he has white cell count of 40,000 and directed to come to the ER. In ER patient was found to be tachycardic and diaphoretic. He has been given Dilaudid for the abdominal pain his blood work shows leukocytosis of 26,000, his lactic acid is [address] of the abdomen and pelvis reported as findings consistent with acute diverticulitis of the rectosigmoid colon with a small pelvic abscess. Patient admitted with inpatient status for acute rectosigmoid diverticulitis with abscess. Has been getting Zosyn. I reviewed his lab and his blood work shows his white cell count is trending down yesterday it was 26.6 today 17.5. Patient also evaluated by Dr. Rosas who recommended to continue IV Zosyn for additional 24 hours then substitute with oral antibiotics. His repeat CT scan of the abdomen and pelvis with contrast reported as persistent inflammatory changes and small abscess. This morning I seen patient resting in bed comfortably. He is very eager to go home. He is awake alert oriented he is not in pain or distress. I will switch his antibiotics to p.o. Cipro and Flagyl for the coming 10 days. And patient needs follow-up with surgical clinic. Reason For Visit: Physical Exam Vital Signs: Temp Pulse Resp BP Pulse Ox 98.5 F 85 18 125/73 99 08/17/18 10:33 08/17/18 10:33 08/17/18 10:33 08/17/18 10:33 08/17/18 10:33 Intake & Output 08/16/18 08/17/18 08/18/18 06:59 06:59 06:59 Intake Total 2300 4596 Output Total 600 Balance 2300 3996 Weight 112 kg General appearance: PRESENT: no acute distress, well-developed, well-nourished Head exam: PRESENT: atraumatic, normocephalic Eye exam: PRESENT: conjunctiva pink, EOMI, PERRLA. ABSENT: scleral icterus Ear exam: PRESENT: normal external ear exam Mouth exam: PRESENT: moist, tongue midline Neck exam: ABSENT: carotid bruit, JVD, lymphadenopathy, thyromegaly Respiratory exam: PRESENT: clear to auscultation obinna. ABSENT: rales, rhonchi, wheezes Cardiovascular exam: PRESENT: RRR. ABSENT: diastolic murmur, rubs, systolic murmur Pulses: PRESENT: normal dorsalis pedis pul Vascular exam: PRESENT: normal capillary refill GI/Abdominal exam: PRESENT: tenderness Rectal exam: PRESENT: deferred Extremities exam: PRESENT: full ROM. ABSENT: calf tenderness, clubbing, pedal edema Neurological exam: PRESENT: alert, awake, oriented to person, oriented to place, oriented to time, oriented to situation, CN II-XII grossly intact. ABSENT: motor sensory deficit Psychiatric exam: PRESENT: appropriate affect, normal mood. ABSENT: homicidal ideation, suicidal ideation Skin exam: PRESENT: dry, intact, warm. ABSENT: cyanosis, rash Results Laboratory Results: 08/17/18 05:50 08/15/18 04:06 08/17/18 05:50 WBC 17.5 H RBC 4.18 L Hgb 13.1 L Hct 39.3 MCV 94 MCH 31.5 MCHC 33.4 RDW 13.7 Plt Count 214 Seg Neutrophils % 77.2 Lymphocytes % 11.6 L Monocytes % 7.7 Eosinophils % 2.6 Basophils % 0.9 Absolute Neutrophils 13.5 H Absolute Lymphocytes 2.0 Absolute Monocytes 1.3 Absolute Eosinophils 0.5 Absolute Basophils 0.2 08/14/18 12:38 Clean Catch Midstream Urine Culture - Final NO GROWTH 2 DAYS Impressions: Abdomen/Pelvis CT 08/16/18 00:00 IMPRESSION: Persistent inflammation in the peritoneal cavity with small pelvic abscesses related to diverticulitis. Qualifiers - * PATIENT BEING DISCHARGED WITH ANY OF THE FOLLOWING DIAGNOSIS: No Acute Heart Failure Is this a Heart Failure Patient?: No
== END 2018-08-17 11:10 | disposition home or self-care (01) | DRG 392 ==
LOC: ER 10:30 → EH 16:07 → 5 17:31
PROVIDERS: ADMIT Internal Medicine; ATTEND Internal Medicine
DX: K57.20 Diverticulitis of large intestine with perforation and abscess without bleeding (principal); D69.3 Immune thrombocytopenic purpura; F17.200 Nicotine dependence, unspecified, uncomplicated; Z90.81 Acquired absence of spleen; Z83.3 Family history of diabetes mellitus; Z82.49 Family history of ischemic heart disease and other diseases of the circulatory system; Z80.9 Family history of malignant neoplasm, unspecified
CPT/HCPCS: 36415; 74177; 80048; 80053; 81001; 82962; 83605; 85025; 87040; 87086; 96361; 96365; 96375; 99285; J1170; J1630; J1650; J2405; J2543; J3010; J3480; J3490; J7030; J7050; J7120

== ENCOUNTER 2018-09-08 10:51 | Emergency (ER) | payer SELFPAY ==
--- NOTE | 2018-09-08 11:54 | ER Document Report ---
ED Medical Screen (RME) - General Chief Complaint: Abdominal Pain Stated Complaint: ABDOMINAL PAIN Time Seen by Provider: 09/08/18 11:51 Mode of Arrival: Ambulatory Information source: Patient Notes: Patient is a 38-year-old male with past medical history of diverticulitis, presenting to the emergency department with complaints of left lower quadrant pain. Patient reports he was discharged from the hospital approximately 1 month ago and the pain has continued since then. He reports on Thursday he had a shrimp boil and drank some beer and the pain has significantly worsened since then. He denies any fever, nausea, vomiting or diarrhea. Exam: Tenderness to palpation to the left lower quadrant. I have greeted and performed a rapid initial assessment of this patient. A comprehensive ED assessment and evaluation of the patient, analysis of test results and completion of the medical decision making process will be conducted by additional ED providers. Dictation of this chart was performed using voice recognition software; therefore, there may be some unintended grammatical errors. TRAVEL OUTSIDE OF THE [place] 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 Done in [facility] Physical Exam - Vital signs Vitals: Temp Pulse Resp BP Pulse Ox 98.9 F 95 18 144/85 H 98 09/08/18 11:00 09/08/18 11:00 09/08/18 11:00 09/08/18 11:00 09/08/18 11:00 Course - Vital Signs Vital signs: Temp Pulse Resp BP Pulse Ox 98.9 F 95 18 144/85 H 98 09/08/18 11:00 09/08/18 11:00 09/08/18 11:00 09/08/18 11:00 09/08/18 11:00
[2018-09-08 13:18] LABS: ABSOLUTE EOSINOPHILS # (AUTO) 0.1 10^3/uL (0.0-0.6); ABSOLUTE LYMPHOCYTES (AUTO) 2.2 10^3/uL (0.5-4.7); ABSOLUTE MONOCYTES (AUTO) 0.6 10^3/uL (0.1-1.4); ABSOLUTE NEUT (AUTO) 6.4 10^3/uL (1.7-8.2); BASOPHILS % (AUTO) 0.4 % (0-2); EOSINOPHILS % (AUTO) 0.6 % (0-6); HEMOGLOBIN 16.6 g/dL (13.5-17.0); LYMPHOCYTES % (AUTO) 23.4 % (13-45); MEAN CORPUSCULAR HEMOGLOBIN 31.9 pg (27.0-33.4); MEAN CORPUSCULAR HGB CONC 33.8 g/dL (32.0-36.0); MEAN CORPUSCULAR VOLUME 95 fl (80-97); MONOCYTES % (AUTO) 6.4 % (3-13); PLATELET COUNT 147 10^3/uL (150-450); RED BLOOD COUNT 5.19 10^6/uL (4.35-5.55); RED CELL DISTRIBUTION WIDTH 13.7 % (11.5-14.0); SEGMENTED NEUTROPHILS % (AUTO) 69.2 % (42-78); TOTAL CELLS COUNTED % (AUTO) 100 %; WHITE BLOOD COUNT 9.2 10^3/uL (4.0-10.5)
[2018-09-08 13:49] LABS: ALANINE AMINOTRANSFERASE 35 U/L (21-72); ALBUMIN 4.8 g/dL (3.5-5.0); ALKALINE PHOSPHATASE 67 U/L (38-126); ANION GAP 11 (5-19); ASPARTATE AMINO TRANSFERASE 20 U/L (17-59); BILIRUBIN,DIRECT 0.3 mg/dL (0.0-0.4); BILIRUBIN,TOTAL 0.8 mg/dL (0.2-1.3); BLOOD UREA NITROGEN 14 mg/dL (7-20); CALCIUM 10.6 mg/dL (8.4-10.2); CARBON DIOXIDE 26 mmol/L (22-30); CHLORIDE 103 mmol/L (98-107); GLUCOSE 102 mg/dL (75-110); LIPASE 59.3 U/L (23-300); POTASSIUM 4.5 mmol/L (3.6-5.0); SODIUM 139.8 mmol/L (137-145); TOTAL PROTEIN 8.2 g/dL (6.3-8.2)
[2018-09-08 13:54] LABS: APPEARANCE,URINE CLEAR; BILIRUBIN,URINE NEGATIVE (NEGATIVE); COLOR,URINE AMBER; GLUCOSE, URINE NEGATIVE (NEGATIVE); KETONES,URINE TRACE mg/dL (NEGATIVE); LEUKOCYTE ESTERASE,URINE NEGATIVE (NEGATIVE); NITRITE,URINE NEGATIVE (NEGATIVE); PROTEIN,URINE NEGATIVE (NEGATIVE); URINE SPECIFIC GRAVITY 1.029; UROBILINOGEN,URINE NEGATIVE mg/dL (<2.0)
--- NOTE | 2018-09-08 17:07 | ER Document Report ---
Addendum entered and electronically signed by NERI MONTGOMERY PA-C 09/08/18 17:27: Discharge - Discharge Clinical Impression: Diverticulitis, Elevated blood pressure reading Condition: Good Disposition: HOME, SELF-CARE Instructions: Abdominal Pain ([facility]) Additional Instructions: Be sure to take the antibiotics for the full duration of the course even if you are feeling better before then. Return to the ED if you get worsening pain, fever, vomiting, and/or diarrhea. Continue your appropriate diverticulitis diet. Prescriptions: Hydrocodone/Acetaminophen [Sodus 5-325 mg Tablet] 1 tab PO Q6HP PRN #12 tablet PRN Reason: Ciprofloxacin HCl [Cipro 500 mg Tablet] 500 mg PO BID #20 tablet Metronidazole [Flagyl 500 mg Tablet] 500 mg PO Q6H #28 tablet Metronidazole [Flagyl 500 mg Tablet] 500 mg PO TID #30 tablet Forms: Elevated Blood Pressure Referrals: [facility] [Provider Group] - Follow up as needed Original Note: ED General - General Chief Complaint: Abdominal Pain Stated Complaint: ABDOMINAL PAIN Time Seen by Provider: 09/08/18 11:51 Mode of Arrival: Ambulatory Information source: Patient TRAVEL OUTSIDE OF THE [place] IN LAST 30 DAYS: No - HPI Patient complains to provider of: Left lower quadrant pain Onset: Other - 3 days ago Onset/Duration: Sudden Quality of pain: Sharp, Stabbing Severity: Severe Pain Level: 4 Associated symptoms: denies: Chills, Diarrhea, Fever, Nausea, Vomiting Exacerbated by: Movement, Other - palpation Relieved by: Denies Similar symptoms previously: No Recently seen / treated by doctor: No Notes: 38-year-old male coming in today with left lower quadrant pain. States about a month ago he was admitted for this and got better on IV antibiotics. He came home and is been trying to follow the diet best he could. Reports 3 days ago started developing pain in his left lower quadrant. States it is intermittent with crescendo decrescendo. Does not radiate. Does not have nausea or vomiting or diarrhea. No fevers or shaking chills. 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 Done in [facility] Review of Systems - Review of Systems Notes: Constitutional: No fevers. No chills. EENT: No eye redness. No eye pain. No ear pain. No sore throat. Cardiovascular: No chest pain. No palpitations. Respiratory: No cough. No shortness of breath. No respiratory distress. Gastrointestinal: Positive left lower quadrant abdominal pain Genitourinary: Atraumatic. No lesions. No pain. No discharge. Musculoskeletal: Atraumatic. No swelling. No deformities. Skin: No rash or lesions. Lymphatic: No swollen lymph nodes. Neurologic: No headache. No syncope. Psychiatric: No suicidal or homicidal ideation. Physical Exam - Vital signs Vitals: Temp Pulse Resp BP Pulse Ox 98.9 F 95 18 144/85 H 98 09/08/18 11:00 09/08/18 11:00 09/08/18 11:00 09/08/18 11:00 09/08/18 11:00 - Notes Notes: General: Well-developed, well-nourished. In no acute distress. Non-toxic appearing. Cardiac: Well-perfused. Regular rate and rhythm. No murmurs, rubs, or gallops. Pulmonary: No respiratory distress. No cyanosis. Bilateral lung fiels are clear to auscultation. Abdominal: Tenderness to deep palpation left lower quadrant. No guarding or rebound. Bowel sounds present all 4 quadrants. HEENT: Head is atraumatic. Conjunctivae not reddened. No tearing. PERRL. EOMI. Orbits atraumatic. No periorbital swelling or erythema. Oropharynx is without erythema, swelling, or exudates. Neck: Supple. No adenopathy. No meningismus. Dermatologic: Warm with good turgor. No rash. Atraumatic. Chest: Atraumatic. No chest wall tenderness to palpation. Musculoskeletal: Moves all extremities well. No range of motion deficits. no muscular or joint tenderness. No paraspinal muscle tenderness. no midline spinal tenderness or step-off. Genitourinary: Examination deferred Neurologic: No gross neurologic deficits. Psychiatric: Normal mood. Course - Re-evaluation Re-evalutation: 09/08/18 17:05 Patient clinically probably has an early non-complicated diverticulitis. No fevers or chills. No nausea vomiting or diarrhea. Patient very emphatic about not wanting to repeat a CAT scan because of the cost. It is reasonable to treat him empirically for now and have him return if he gets any worse. - Vital Signs Vital signs: Temp Pulse Resp BP Pulse Ox 98.9 F 95 18 144/85 H 98 09/08/18 11:00 09/08/18 11:00 09/08/18 11:00 09/08/18 11:00 09/08/18 11:00 - Laboratory Result Diagrams: 09/08/18 13:00 09/08/18 13:00 Laboratory results interpreted by me: 09/08/18 09/08/18 09/08/18 12:40 13:00 13:00 Plt Count 147 L Calcium 10.6 H Urine Ketones TRACE H Urine Ascorbic Acid 40 H Discharge - Discharge Clinical Impression: Diverticulitis, Elevated blood pressure reading Condition: Good Disposition: HOME, SELF-CARE Instructions: Abdominal Pain ([facility]) Additional Instructions: Be sure to take the antibiotics for the full duration of the course even if you are feeling better before then. Return to the ED if you get worsening pain, fever, vomiting, and/or diarrhea. Continue your appropriate diverticulitis diet . Prescriptions: Hydrocodone/Acetaminophen [Sodus 5-325 mg Tablet] 1 tab PO Q6HP PRN #12 tablet PRN Reason: Ciprofloxacin HCl [Cipro 500 mg Tablet] 500 mg PO BID #20 tablet Metronidazole [Flagyl 500 mg Tablet] 500 mg PO Q6H #28 tablet Forms: Elevated Blood Pressure Referrals: [facility] [Provider Group] - Follow up as needed
[2018-09-08 17:44] VITALS: BP 144/93
== END 2018-09-08 17:44 | disposition home or self-care (01) ==
LOC: ER 10:51
DX: K57.92 Diverticulitis of intestine, part unspecified, without perforation or abscess without bleeding (principal); I10 Essential (primary) hypertension; R10.32 Left lower quadrant pain; Z87.891 Personal history of nicotine dependence
CPT/HCPCS: 36415; 80053; 81001; 83690; 85025; 99284